=== PATIENT | male | born 1990 | race African-American/Black ===

== ENCOUNTER 2020-09-17 18:43 | Emergency (ER) | payer OTHER ==
--- NOTE | 2020-09-17 19:01 | ER Document Report ---
ED Hand/Wrist Injury - General Chief Complaint: Hand Swelling Stated Complaint: LEFT HAND PAIN,SWELLING Time Seen by Provider: 09/17/20 18:58 Notes: CHIEF COMPLAINT: Injury to left hand yesterday HPI: 30-year-old male who is right-hand dominant presenting with injury and pain to the base of the left fifth finger. Was try to crack his knuckles yesterday but they would not crack now with bruising and pain to the left hand. ROS: See HPI - all other systems were reviewed and are otherwise negative Constitutional: no fever Integumentary: no rash Allergy: no hives Musculoskeletal: + extremity pain or swelling Neurological: no numbness/tingling MEDICATIONS: I agree with the patient medications as charted by the RN. ALLERGIES: I agree with the allergies as charted by the RN. PAST MEDICAL HISTORY/PAST SURGICAL HISTORY: Reviewed and agree as charted by RN. SOCIAL HISTORY: Reviewed and agree as charted by RN. FAMILY HISTORY: No significant familial comorbid conditions directly related to patient complaint EXAM: Reviewed vital signs as charted by RN. CONSTITUTIONAL: Alert and oriented and responds appropriately to questions. Well-appearing; well-nourished HEAD: Normocephalic; atraumatic EYES: Conjunctivae clear, sclerae non-icteric ENT: normal nose; no rhinorrhea; moist mucous membranes NECK: Supple without meningismus CARD: symmetric distal pulses RESP: Normal chest excursion without splinting or tachypnea ABD/GI: non-distended BACK: The back appears normal EXT: Normal ROM in all joints; there is very slight bruising on the palmar aspect of the left hand at the base of the fifth finger proximal to the MCP region. There is tenderness on palpation of this region. He is able to fully flex and extend the left fifth finger with some discomfort. No tenderness on palpation of the dorsal aspect of the fifth metacarpal. Sensation intact in the distal fingertips to touch with capillary refill less than 3 seconds SKIN: Normal color for age and race; warm; dry; good turgor; no acute lesions noted NEURO: Moves all extremities equally; Motor and sensory function intact PSYCH: The patient's mood and manner are appropriate. Grooming and personal hygiene are appropriate. MDM: 30-year-old male injury to the left fifth finger while trying to crack his knuckles yesterday. Will obtain x-ray for fracture - Related Data Allergies/Adverse Reactions: No Known Allergies Allergy (Unverified 09/17/20 18:56) Past Medical History - Social History Smoking Status: Unknown if Ever Smoked Family History: Reviewed & Not Pertinent Physical Exam - Vital signs Vitals: Temp Pulse Resp BP Pulse Ox 99.1 F 99 18 152/109 H 99 09/17/20 18:49 09/17/20 18:49 09/17/20 18:49 09/17/20 18:49 09/17/20 18:49 Course - Re-evaluation Re-evalutation: 09/17/20 19:48 X-ray imaging negative for fracture. Will discharge home symptomatic treatment - Vital Signs Vital signs: Temp Pulse Resp BP Pulse Ox 99.1 F 99 18 152/109 H 99 09/17/20 18:49 09/17/20 18:49 09/17/20 18:49 09/17/20 18:49 09/17/20 18:49 - Laboratory Results Critical Laboratory Results Reviewed: No Critical Results - Radiology Results Critical Radiology Results Reviewed: No Critical Results Discharge - Discharge Clinical Impression: Injury of left hand Qualifiers: Encounter type: initial encounter Qualified Code(s): S69.92XA - Unspecified injury of left wrist, hand and finger(s), initial encounter Condition: Stable Disposition: HOME, SELF-CARE Additional Instructions: Make sure to ice the hand 2-3 times daily for 5 to 10 minutes at a time do not place ice directly on the skin. Take the Voltaren consistently for pain. F ollow-up with orthopedics for further evaluation and treatment as needed call for appointment Prescriptions: Diclofenac Sodium [Voltaren 50 Mg Greta.] 50 mg PO BID #20 tablet. Referrals: CAROLANN NERI JR, DO [ACTIVE PROVISIONAL STAFF] - Follow up as needed
--- NOTE | 2020-09-17 19:44 | RADIOLOGY REPORT (SQ) ---
EXAM DESCRIPTION: HAND LEFT 3 VIEWS IMAGES COMPLETED DATE/TIME: 09/17/2020 6:14 pm REASON FOR STUDY: pain base 5th finger COMPARISON: None. EXAM PARAMETERS: NUMBER OF VIEWS: Three views. TECHNIQUE: AP, lateral and oblique radiographic images acquired of the left hand. LIMITATIONS: None. FINDINGS: MINERALIZATION: Normal. BONES: No acute fracture or dislocation. No worrisome bone lesions. JOINTS: No effusions. SOFT TISSUES: No soft tissue swelling. No foreign body. OTHER: No other significant finding. IMPRESSION: NEGATIVE STUDY OF THE LEFT HAND. NO RADIOGRAPHIC EVIDENCE OF ACUTE INJURY. TECHNICAL DOCUMENTATION: JOB ID: [id number] 2010 [employer]- All Rights Reserved Reading location - IP/workstation name: [email or web address]
[2020-09-17] MEDS ORDERED: NAPROXEN 250 MG TABLET PO ONE (19:49)
[2020-09-17 19:57] VITALS: BP 155/100
== END 2020-09-17 19:59 | disposition home or self-care (01) ==
LOC: ER 18:43
DX: S69.92XA Unspecified injury of left wrist, hand and finger(s), initial encounter (principal); R22.32 Localized swelling, mass and lump, left upper limb; X58.XXXA Exposure to other specified factors, initial encounter
CPT/HCPCS: 99283